=== PATIENT | female | born 1980 | race Caucasian/White ===

== ENCOUNTER 2017-06-08 15:59 | Emergency (ER) | payer BC, MEDICAID ==
[~2017-06-08] VITALS: Ht 157.5 cm; Wt 61.2 kg
[2017-06-08 16:12] VITALS: BP_SYST 138
[2017-06-08 17:52] VITALS: BP_SYST 138
== END 2017-06-08 17:52 | disposition home or self-care (01) ==
LOC: SED 15:59
DX: J06.9 Acute upper respiratory infection, unspecified (principal); Z91.048 Other nonmedicinal substance allergy status; Z85.9 Personal history of malignant neoplasm, unspecified
CPT/HCPCS: 99283

== ENCOUNTER 2017-09-09 10:41 | Emergency (ER) | payer BC, MEDICAID ==
[~2017-09-09] VITALS: Ht 157.5 cm; Wt 61.2 kg
[2017-09-09 10:52] VITALS: BP_SYST 159
== END 2017-09-09 12:21 | disposition home or self-care (01) ==
LOC: SED 10:41
DX: S83.92XA Sprain of unspecified site of left knee, initial encounter (principal); Z87.442 Personal history of urinary calculi; Z88.8 Allergy status to other drugs, medicaments and biological substances; W01.0XXA Fall on same level from slipping, tripping and stumbling without subsequent striking against object, initial encounter; Y93.89 Activity, other specified; Y92.89 Other specified places as the place of occurrence of the external cause; Y99.8 Other external cause status
CPT/HCPCS: 73564; 99284

== ENCOUNTER 2018-09-06 06:32 | Emergency (ER) | payer MEDICAID ==
[~2018-09-06] VITALS: Ht 157.5 cm; Wt 64.9 kg
[2018-09-06 06:44] VITALS: BP_SYST 109
[2018-09-06 07:23] LABS: BASOPHILS % (AUTO) 0.6 % (0.0-2.0); HEMOGLOBIN 12.9 g/dL (12.0-16.0); LYMPHOCYTES # (AUTO) 0.6 K/uL (1.0-5.5); LYMPHOCYTES % (AUTO) 9.9 % (20.5-51.5); MEAN CORPUSCULAR HEMOGLOBIN 29 pg (27-31); MEAN CORPUSCULAR HGB CONC 34 % (32-36); MEAN CORPUSCULAR VOLUME 87 fL (79.0-98.0); MONOCYTES # (AUTO) 0.3 K/uL (0.0-1.0); MONOCYTES % (AUTO) 4.6 % (1.7-9.3); NEUTROPHILS # (AUTO) 5.4 K/uL (1.8-7.7); NEUTROPHILS % (AUTO) 84.9 % (40.0-70.0); PLATELET COUNT (AUTO) 186 K/uL (130-430); RED BLOOD CELL COUNT(AUTO) 4.38 MIL/uL (4.2-6.2); RED CELL DISTRIBUTION WIDTH 12.8 % (9.0-15.0); WHITE BLOOD COUNT (AUTO) 6.4 K/uL (4.8-10.8)
[2018-09-06] MEDS ORDERED: NACL 0.9% 1,000 ML IV ONE (07:30)
[2018-09-06 07:37] LABS: CALCIUM 9.2 mg/dL (8.4-11.0); CREATININE 1.06 mg/dL (0.55-1.30); POTASSIUM 3.9 mmol/L (3.5-5.1)
[2018-09-06 07:41] LABS: ALBUMIN 2.9 g/dL (3.4-4.8); TOTAL BILIRUBIN 0.4 mg/dL (0.0-1.0)
[2018-09-06 08:20] LABS: BILIRUBIN,URINE 1+ (NEGATIVE); BLOOD, URINE NEGATIVE (NEGATIVE); CLARITY/URINE HAZY (CLEAR); COLOR,URINE AMBER (YELLOW); GLUCOSE,URINE NEGATIVE (NEGATIVE); KETONES,URINE TRACE (NEGATIVE); LEUKOCYTE ESTERASE ,URINE 1+ (NEGATIVE); NITRITE, URINE NEGATIVE (NEGATIVE); PROTEIN URINE 2+ (NEGATIVE); UROBILINOGEN,URINE 0.2 (0.2-1.0)
[2018-09-06 08:28] LABS: BACTERIA,URINE MODERATE /HPF (None Seen); MUCUS,URINE 2+ /LPF (None Seen); RBC,URINE 0-3 /HPF (0-3)
[2018-09-06 09:05] VITALS: BP_SYST 121
== END 2018-09-06 09:05 | disposition home or self-care (01) ==
LOC: SED 06:32
DX: J11.1 Influenza due to unidentified influenza virus with other respiratory manifestations (principal); R11.2 Nausea with vomiting, unspecified; R42 Dizziness and giddiness; R53.1 Weakness; Z85.528 Personal history of other malignant neoplasm of kidney; Z88.8 Allergy status to other drugs, medicaments and biological substances
CPT/HCPCS: 36415; 71045; 80053; 81000; 85025; 86710; 87086; 96360; 99285; J7030

== ENCOUNTER 2020-10-12 03:54 | Emergency (ER) | payer MEDICAID ==
[~2020-10-12] VITALS: Ht 152.4 cm; Wt 65.8 kg
[2020-10-12 04:00] VITALS: BP_SYST 157
[2020-10-12 04:37] LABS: BILIRUBIN,URINE NEGATIVE (NEGATIVE); BLOOD, URINE NEGATIVE (NEGATIVE); CLARITY/URINE CLEAR (CLEAR); COLOR,URINE YELLOW (YELLOW); GLUCOSE,URINE NEGATIVE (NEGATIVE); KETONES,URINE NEGATIVE (NEGATIVE); LEUKOCYTE ESTERASE ,URINE NEGATIVE (NEGATIVE); NITRITE, URINE NEGATIVE (NEGATIVE); PROTEIN URINE NEGATIVE (NEGATIVE); UROBILINOGEN,URINE 0.2 (0.2-1.0)
[2020-10-12 04:41] LABS: BASOPHILS % (AUTO) 0.6 % (0.0-2.0); EOSINOPHILS # (AUTO) 0.1 K/uL (0.0-0.4); EOSINOPHILS % (AUTO) 1.9 % (0.0-4.0); HEMATOCRIT 36.1 % (36-48); HEMOGLOBIN 12.4 g/dL (12.0-16.0); LYMPHOCYTES # (AUTO) 1.7 K/uL (1.0-5.5); LYMPHOCYTES % (AUTO) 39.5 % (20.5-51.5); MEAN CORPUSCULAR HEMOGLOBIN 35 pg (27-31); MEAN CORPUSCULAR HGB CONC 34 % (32-36); MEAN CORPUSCULAR VOLUME 101 fL (79.0-98.0); MONOCYTES # (AUTO) 0.6 K/uL (0.0-1.0); MONOCYTES % (AUTO) 13.8 % (1.7-9.3); NEUTROPHILS # (AUTO) 1.9 K/uL (1.8-7.7); NEUTROPHILS % (AUTO) 44.2 % (40.0-70.0); PLATELET COUNT (AUTO) 138 K/uL (130-430); RED BLOOD CELL COUNT(AUTO) 3.59 MIL/uL (4.2-6.2); RED CELL DISTRIBUTION WIDTH 14.3 % (9.0-15.0); WHITE BLOOD COUNT (AUTO) 4.2 K/uL (4.8-10.8)
[2020-10-12 04:56] LABS: CALCIUM 8.5 mg/dL (8.4-11.0); CREATININE 0.72 mg/dL (0.55-1.30); POTASSIUM 3.4 mmol/L (3.5-5.1)
[2020-10-12] MEDS ORDERED: LIDOCAINE VISCOUS 2%, 15 ML UDC MM ONE (05:00)
[2020-10-12] MEDS ORDERED: ONDANSETRON HCL 4 MG/2 ML VIAL IVP ONE (05:00)
[2020-10-12] MEDS ORDERED: NACL 0.9% 1,000 ML IV ONE (05:00)
[2020-10-12] MEDS ORDERED: MAG-AL HYDROX/SIMETH 30 ML UDC PO ONE (05:00)
[2020-10-12] MEDS ORDERED: DICYCLOMINE HCL 10 MG/5 ML SOLUTION PO ONE (05:00)
[2020-10-12 05:01] LABS: TOTAL BILIRUBIN 0.5 mg/dL (0.0-1.0)
[2020-10-12 07:21] VITALS: BP_SYST 157
== END 2020-10-12 07:22 | disposition home or self-care (01) ==
LOC: SED 03:54
DX: R10.12 Left upper quadrant pain (principal); R11.10 Vomiting, unspecified; Z85.528 Personal history of other malignant neoplasm of kidney; Z88.8 Allergy status to other drugs, medicaments and biological substances
CPT/HCPCS: 36415; 74177; 76376; 80053; 81003; 81025; 83690; 84702; 85025; 96361; 96374; 99285; J7030

== ENCOUNTER 2020-10-20 00:11 | Emergency (ER) | payer OTHER, MEDICAID ==
[~2020-10-20] VITALS: Ht 152.4 cm; Wt 63.5 kg
[2020-10-20 00:20] VITALS: BP_SYST 147
--- NOTE | 2020-10-20 00:20 | NUR ---
Patient triaged and placed in waiting room. VSS and patient appears in no acute distress at this time. Accompanied by FAM MEMBER, awaiting available bed, and MD notified of need for MSE.
--- NOTE | 2020-10-20 01:00 | NUR ---
ER examining patient in the triage room.
--- NOTE | 2020-10-20 02:40 | NUR ---
Patient given written and verbal discharge instructions and verbalizes understanding. ER MD discussed with patient the results and treatment provided. Patient in stable condition. ID arm band removed. Rx of Naprosyn given. Patient educated on pain management and to follow up with PMD. Pain Scale 3/10. Opportunity for questions provided and answered. Medication side effect fact sheet provided.
[2020-10-20 02:44] VITALS: BP_SYST 139
== END 2020-10-20 02:44 | disposition home or self-care (01) ==
LOC: SED 00:11
DX: S33.9XXA Sprain of unspecified parts of lumbar spine and pelvis, initial encounter (principal); S13.4XXA Sprain of ligaments of cervical spine, initial encounter; Z88.8 Allergy status to other drugs, medicaments and biological substances; Z85.528 Personal history of other malignant neoplasm of kidney; V49.9XXA Car occupant (driver) (passenger) injured in unspecified traffic accident, initial encounter; Y93.89 Activity, other specified; Y92.413 State road as the place of occurrence of the external cause; Y99.8 Other external cause status
CPT/HCPCS: 72040-TC; 72100-TC; 99284

== ENCOUNTER 2020-10-29 07:25 | Emergency (ER) | payer MEDICAID, SELFPAY ==
[~2020-10-29] VITALS: Ht 167.6 cm; Wt 68.0 kg
[2020-10-29 07:30] VITALS: BP_SYST 151
--- NOTE | 2020-10-29 07:30 | NUR ---
TRIAGED IN TEN
--- NOTE | 2020-10-29 08:00 | NUR ---
DR. MANZANARES EXAMINING PT
[2020-10-29 09:00] VITALS: BP_SYST 151
--- NOTE | 2020-10-29 09:00 | NUR ---
Patient given written and verbal discharge instructions and verbalizes understanding. ER MD discussed with patient the results and treatment provided. Patient in stable condition. ID arm band removed. Rx of BACTRIM given. Patient educated on pain management and to follow up with PMD. Pain Scale 0/10. Opportunity for questions provided and answered. Medication side effect fact sheet provided.
== END 2020-10-29 09:00 | disposition home or self-care (01) ==
LOC: SED 07:25
DX: N39.0 Urinary tract infection, site not specified (principal); R03.0 Elevated blood-pressure reading, without diagnosis of hypertension; Z88.8 Allergy status to other drugs, medicaments and biological substances
CPT/HCPCS: 99283

== ENCOUNTER 2021-08-18 18:41 | Emergency (ER) | payer OTHER, MEDICAID, SELFPAY ==
[~2021-08-18] VITALS: Ht 154.9 cm; Wt 63.5 kg
[2021-08-18 18:41] VITALS: BP_SYST 137
[~2021-08-18 18:41] MED LIST: CEPH-568 PO; NAPR-690 PO; PHEN-726 PO
--- NOTE | 2021-08-18 18:41 | NUR ---
Patient to ER bed 02 to gown for evaluation. Report given to CARIDAD Klein
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
--- NOTE | 2021-08-18 18:57 | NUR ---
ER Dr. Curry at bedside examining patient.
[2021-08-18] MEDS ORDERED: KETOROLAC TROMETHAMINE 60 MG/2 ML VIAL IM ONE (19:00)
--- NOTE | 2021-08-18 19:10 | NUR ---
Report recieved from Evelina MCLEAN. Pt resting in [facility] 5/10 pain posterior neck. VSS no distress noted at this time.
--- NOTE | 2021-08-18 19:12 | NUR ---
Patient transported to radiology via ambulatory, accompanied by tech.
--- NOTE | 2021-08-18 19:20 | NUR ---
Pt back from X-ray and back into [facility].
[2021-08-18] MEDS ORDERED: NAPR-690 PO (19:29)
--- NOTE | 2021-08-18 19:36 | NUR ---
Patient given written and verbal discharge instructions and verbalizes understanding. DR. ANETTE COYNE MD discussed with patient the results and treatment provided. Patient in stable condition. ID arm band removed. Rx of NAPROXEN given. Patient educated on pain management and to follow up with PMD. Pain Scale 0/10. Opportunity for questions provided and answered. Medication side effect fact sheet provided.
[2021-08-18 19:37] VITALS: BP_SYST 137
== END 2021-08-18 19:36 | disposition home or self-care (01) ==
LOC: SED 18:41
DX: S13.4XXA Sprain of ligaments of cervical spine, initial encounter (principal); Z88.8 Allergy status to other drugs, medicaments and biological substances; Z79.899 Other long term (current) drug therapy; V49.49XA Driver injured in collision with other motor vehicles in traffic accident, initial encounter; Y93.89 Activity, other specified; Y92.89 Other specified places as the place of occurrence of the external cause; Y99.8 Other external cause status
CPT/HCPCS: 72040; 96372; 99283; J1885

== ENCOUNTER 2021-12-14 08:01 | Emergency (ER) | payer MEDICAID, SELFPAY ==
[~2021-12-14] VITALS: Ht 154.9 cm; Wt 61.2 kg
[2021-12-14 08:05] VITALS: BP_SYST 153
--- NOTE | 2021-12-14 08:05 | NUR ---
Pt to bed 7 for evaluation.
--- NOTE | 2021-12-14 08:10 | NUR ---
Pt AAO and ambulatory reporting weakness and feeling shaky. Pt reports that she has not been eating X 5 days. Pt reports that she is unable to keep down food or water. Pt denies pain currently.
--- NOTE | 2021-12-14 08:15 | NUR ---
Dr. Lara at bedside to assess.
--- NOTE | 2021-12-14 08:24 | NUR ---
Flu and Covid swab obtained and sent to lab for analysis.
[2021-12-14] MEDS ORDERED: NACL 0.9% 1,000 ML IV ONE (08:30)
[2021-12-14] MEDS ORDERED: ONDANSETRON HCL 4 MG/2 ML VIAL IVP ONE (08:30)
--- NOTE | 2021-12-14 08:35 | NUR ---
Urine specimen obtained and sent to lab for analysis.
--- NOTE | 2021-12-14 08:45 | NUR ---
PCXR done at bedside.
--- NOTE | 2021-12-14 08:46 | NUR ---
Report received from Nighat MCLEAN to assume care of patient
--- NOTE | 2021-12-14 09:00 | NUR ---
# 22 gauge angiocath placed to L forearm. Use of asceptic technique. Opsite placed over site. Blood return noted. Blood for lab drawn from site. Flushed with 10 cc of normal saline. No evidence of infiltration noted. Patient tolerated well.
[2021-12-14 09:20] LABS: BILIRUBIN,URINE 2+ (NEGATIVE); CLARITY/URINE CLEAR (CLEAR); COLOR,URINE YELLOW (YELLOW); GLUCOSE,URINE NEGATIVE (NEGATIVE); KETONES,URINE 3+ (NEGATIVE); LEUKOCYTE ESTERASE ,URINE TRACE (NEGATIVE); NITRITE, URINE NEGATIVE (NEGATIVE); PROTEIN URINE 1+ (NEGATIVE)
[2021-12-14 09:40] LABS: BLOOD, URINE TRACE (NEGATIVE)
[2021-12-14 09:53] LABS: MONOCYTES # (AUTO) 0.5 K/uL (0.0-1.0); NEUTROPHILS # (AUTO) 3.6 K/uL (1.8-7.7); WHITE BLOOD COUNT (AUTO) 5.1 K/uL (4.8-10.8)
[2021-12-14 09:54] LABS: CALCIUM 9.4 mg/dL (8.4-11.0); CREATININE 0.74 mg/dL (0.55-1.30)
[2021-12-14 09:55] LABS: BACTERIA,URINE FEW /HPF (None Seen); HYALINE CASTS, URINE 0-10 /LPF (None Seen); MUCUS,URINE 1+ /LPF (None Seen)
[2021-12-14 10:00] LABS: ALBUMIN 3.8 g/dL (3.4-4.8); TOTAL BILIRUBIN 3.6 mg/dL (0.0-1.0)
[2021-12-14 10:02] LABS: BASOPHILS % (AUTO) 0.8 % (0.0-2.0); EOSINOPHILS % (AUTO) 0.2 % (0.0-4.0); HEMATOCRIT 41.6 % (36-48); HEMOGLOBIN 13.7 g/dL (12.0-16.0); MEAN CORPUSCULAR HEMOGLOBIN 35 pg (27-31); MEAN CORPUSCULAR HGB CONC 33 % (32-36); MEAN CORPUSCULAR VOLUME 105 fL (79.0-98.0); MONOCYTES % (AUTO) 9.4 % (1.7-9.3); NEUTROPHILS % (AUTO) 70.6 % (40.0-70.0); PLATELET COUNT (AUTO) 121 K/uL (130-430); RED BLOOD CELL COUNT(AUTO) 3.97 MIL/uL (4.2-6.2); RED CELL DISTRIBUTION WIDTH 14.7 % (9.0-15.0)
[2021-12-14] MEDS ORDERED: FAMOTIDINE PF 20 MG/2 ML VIAL IVP ONE (10:30)
[2021-12-14] MEDS ORDERED: cefTRIAXone 2 GM VIAL ONE (10:33)
--- NOTE | 2021-12-14 11:11 | NUR ---
Dr Lara to bedside to re-evaluate patient
[2021-12-14] MEDS ORDERED: CEPH-548 PO (11:17)
[2021-12-14] MEDS ORDERED: ONDA-8 TL (11:17)
--- NOTE | 2021-12-14 11:33 | NUR ---
Report given to Tim HOLMAN to assume care of patient
[2021-12-14 12:07] VITALS: BP_SYST 146
--- NOTE | 2021-12-14 12:09 | NUR ---
Patient given written and verbal discharge instructions and verbalizes understanding. ER MD discussed with patient the results and treatment provided. Patient in stable condition. ID arm band removed. IV catheter removed intact and dressing applied, no active bleeding. Rx of Cephalexin 500 mg and ondansteron 4 mg tab given. Patient educated on pain management and to follow up with PMD. Pain Scale . Opportunity for questions provided and answered. Medication side effect fact sheet provided.
== END 2021-12-14 12:09 | disposition home or self-care (01) ==
LOC: SED 08:01
DX: U07.1 COVID-19 (principal); N39.0 Urinary tract infection, site not specified; R31.9 Hematuria, unspecified; K70.10 Alcoholic hepatitis without ascites; E86.0 Dehydration; R82.4 Acetonuria; Z88.8 Allergy status to other drugs, medicaments and biological substances; Z79.899 Other long term (current) drug therapy
CPT/HCPCS: 36415; 71045; 80053; 81000; 81025; 83690; 85025; 87086; 87426; 87804 ×2; 93005; 96361; 96365; 96375; 99285; G0482; J0696; J2405; J3490; J7030

== ENCOUNTER 2022-05-22 14:04 | Emergency (ER) | payer MEDICAID ==
[~2022-05-22] VITALS: Ht 157.5 cm; Wt 50.8 kg
[~2022-05-22 14:04] MED LIST changes: +CEPH-548 PO; +ONDA-8 TL
[2022-05-22 14:10] VITALS: BP_SYST 157
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
--- NOTE | 2022-05-22 15:00 | NUR ---
Placed in room 8 . Placed on molder shoulder pad, blood pressure machine and pulse oximeter. To gown for exam. Side rails up. Report given to CARIDAD JIN.
--- NOTE | 2022-05-22 16:20 | NUR ---
ER DR. DOMINIQUE AT THE BEDSIDE EXAMINING PT
--- NOTE | 2022-05-22 16:39 | NUR ---
Patient transported to radiology via gurney, accompanied by automotive repair technician.
[2022-05-22] MEDS ORDERED: LORazepam 2 MG/ML VIAL IVP ONE (16:45)
[2022-05-22] MEDS ORDERED: NACL 0.9% 1,000 ML IV ONE (16:45)
[2022-05-22] MEDS ORDERED: levETIRAcetam 1,000 MG in NS 90 ML IV ONE (16:45)
--- NOTE | 2022-05-22 16:49 | NUR ---
Returned from radiology, back to [facility].
[2022-05-22 17:15] LABS: BASOPHILS % (AUTO) 0.7 % (0.0-2.0); EOSINOPHILS % (AUTO) 0.1 % (0.0-4.0); HEMOGLOBIN 12.6 g/dL (12.0-16.0); LYMPHOCYTES # (AUTO) 0.5 K/uL (1.0-5.5); LYMPHOCYTES % (AUTO) 15.3 % (20.5-51.5); MEAN CORPUSCULAR HEMOGLOBIN 36 pg (27-31); MEAN CORPUSCULAR HGB CONC 35 % (32-36); MEAN CORPUSCULAR VOLUME 104 fL (79.0-98.0); MONOCYTES # (AUTO) 0.4 K/uL (0.0-1.0); MONOCYTES % (AUTO) 12.5 % (1.7-9.3); NEUTROPHILS # (AUTO) 2.5 K/uL (1.8-7.7); NEUTROPHILS % (AUTO) 71.4 % (40.0-70.0); PLATELET COUNT (AUTO) 104 K/uL (130-430); RED BLOOD CELL COUNT(AUTO) 3.47 MIL/uL (4.2-6.2); RED CELL DISTRIBUTION WIDTH 15.4 % (9.0-15.0); WHITE BLOOD COUNT (AUTO) 3.6 K/uL (4.8-10.8)
[2022-05-22 17:32] LABS: ANION GAP 6 (5-15); CALCIUM 9.7 mg/dL (8.4-11.0); CHLORIDE 92 mmol/L (98-107); GLUCOSE 107 mg/dL (70-99); POTASSIUM 3.2 mmol/L (3.5-5.1); SODIUM SERUM 134 mmol/L (136-145); UREA NITROGEN, BLOOD 7 mg/dL (8-21)
[2022-05-22 17:35] LABS: INR 1.1 (0.8-1.2); PROTHROMBIN TIME 11.3 SECS (9.5-12.5)
[2022-05-22 17:36] LABS: GFR AFRICAN AMERICAN 90 mL/min (>90)
[2022-05-22 17:46] LABS: ALANINE AMINOTRANSFERASE 105 U/L (12-78); ALBUMIN 3.6 g/dL (3.4-4.8); ASPARTATE AMINOTRANSFERASE 542 U/L (10-37); TOTAL BILIRUBIN 1.7 mg/dL (0.0-1.0)
[2022-05-22 17:52] LABS: ACETAMINOPHEN < 1 ug/mL (1-30); ALCOHOL, BLOOD < 3 mg/dL (<10)
[2022-05-22] MEDS ORDERED: chlordiazePOXIDE HCL 25 MG CAPSULE PO ONE ×2 (18:45→23:30)
[2022-05-22] MEDS ORDERED: POTASSIUM CHLORIDE 20 MEQ TAB.PRT.SR PO ONE (19:15)
--- NOTE | 2022-05-22 19:17 | NUR ---
REPORT GIVEN TO CARIDAD MATOS FOR CONTINUING CARE
[2022-05-22 20:29] VITALS: BP_SYST 125
[2022-05-22 22:03] LABS: BARBITURATE, URINE NEGATIVE (NEG <=200); BENZODIAZEPINE, URINE POSITIVE (NEG <=150); CANNABINOID, URINE NEGATIVE (NEG <=50); COCAINE, URINE NEGATIVE (NEG <=150); METHAMPHETAMINES SCREEN,URINE NEGATIVE (NEG <=500); OPIATE, URINE NEGATIVE (NEG <=100); PHENCYCLIDINE SCREEN,URINE NEGATIVE (NEG <=25); UR TRICYCLIC ANTIDEPRESSANTS NEGATIVE (NEG <=300); URINE AMPHETAMINE NEGATIVE (NEG <=500); URINE METHADONE NEGATIVE (NEG <=200); URINE OXYCODONE SCREEN NEGATIVE (NEG <=100); URINE PROPOXYPHENE SCREEN NEGATIVE (NEG <=300)
[2022-05-22] MEDS ORDERED: LIB25 PO (23:17)
--- NOTE | 2022-05-22 23:34 | NUR ---
Patient given written and verbal discharge instructions and verbalizes understanding. ER DR TRIP URBAN discussed with patient the results and treatment provided. Patient in stable condition. ID arm band removed. Rx of given. Patient educated on pain management and to follow up with PMD. Pain Scale . Opportunity for questions provided and answered. Medication side effect fact sheet provided.
== END 2022-05-22 23:54 | disposition home or self-care (01) ==
LOC: SED 14:04
DX: G40.89 Other seizures (principal); F10.20 Alcohol dependence, uncomplicated; E87.6 Hypokalemia; F19.20 Other psychoactive substance dependence, uncomplicated; Z79.899 Other long term (current) drug therapy
CPT/HCPCS: 99285; 96365; 70450; 71045; 96375; 80307; 80053; 82962; 85025; 85610; 85730; 87040; 84484; 36415; 93005; 76376; 83605; G0482; J1953; J2060; G0480; G0481